=== PATIENT | male | born 1985 ===

== ENCOUNTER 2016-06-08 02:52 | Emergency (ER) | payer SELFPAY ==
[2016-06-08] MEDS ORDERED: HYDROCODONE/ACETAMINOPHEN 5/325MG TABLET ONE (03:46)
--- NOTE | 2016-06-08 07:59 | RAD ---
LUMBAR SPINE 3 VIEWS HISTORY: Back pain status post injury. Frontal, lateral, frontal cone down views of lumbar spine acquired. COMPARISON: None. ALIGNMENT: Grossly unremarkable. DISC SPACES: Grossly preserved. COMPRESSION DEFORMITY: None. FACET JOINTS: Grossly unremarkable. DISPLACED FRACTURE FRAGMENT: None identified. IMPRESSION: Compression deformity or displaced fracture fragment identified.
== END 2016-06-08 03:58 | disposition home or self-care (01) ==
LOC: ED 02:52
DX: M54.5 Low back pain (principal); W01.10XA Fall on same level from slipping, tripping and stumbling with subsequent striking against unspecified object, initial encounter; Y93.E6 Activity, residential relocation; Y92.009 Unspecified place in unspecified non-institutional (private) residence as the place of occurrence of the external cause
CPT/HCPCS: 72100; 99283 ×2; A9270

== ENCOUNTER 2016-06-15 23:14 | Emergency (ER) | payer OTHER ==
[2016-06-16] MEDS ORDERED: HYDROMORPHONE HCL 1 MG/ML SYRINGE ONE (01:34)
[2016-06-16] MEDS ORDERED: KETOROLAC TROMETHAMINE 60 MG/2 ML VIAL ONE (01:34)
--- NOTE | 2016-06-16 07:51 | RAD ---
LOWER LEG RIGHT COMPARISON: None. 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 FINDINGS: Views: AP and lateral right tibia fibula. Bones: Nondisplaced transverse fracture through the distal diaphysis of the right tibia. Joints: Normal. Soft tissues: Soft tissue swelling adjacent to the fracture. IMPRESSION: 1. Nondisplaced transverse fracture through the distal diaphysis of the right tibia, with adjacent soft tissue swelling.
== END 2016-06-16 02:30 | disposition home or self-care (01) ==
LOC: ED 23:14
DX: S82.201A Unspecified fracture of shaft of right tibia, initial encounter for closed fracture (principal); V83.5XXA Driver of special industrial vehicle injured in nontraffic accident, initial encounter; Y93.89 Activity, other specified; Y92.63 Factory as the place of occurrence of the external cause; Y99.0 Civilian activity done for income or pay
CPT/HCPCS: 73590; 99283; 29515; 96372 ×2; 99284; J1170; J1885